=== PATIENT | female | born 1960 | race Hispanic/Latino ===

== ENCOUNTER 2017-11-08 09:42 | Outpatient (CLI) | payer BC ==
--- NOTE | 2017-11-08 13:02 | ULT ---
NECK SOFT TISSUE SONOGRAM: History: Lump left neck. FINDINGS: Lymph node along the left jugular chain is 1.1 cm in length. A 1.8 cm lymph node is also apparent alistair ng the left internal jugular chain. A 1.0 cm left submandibular lymph node is visualized. IMPRESSION: Reactive appearing lymph nodes along the left side of the neck. No dominant aggressive mass is appare nt. POS: [facility]
== END 2017-11-08 09:43 | disposition home or self-care (01) ==
LOC: ULT 09:42
PROVIDERS: ATTEND Family Medicine
DX: R59.1 Generalized enlarged lymph nodes (principal)
CPT/HCPCS: 76536

== ENCOUNTER 2017-12-01 10:39 | Outpatient (CLI) | payer BC ==
[2017-12-01] MEDS ORDERED: Iopamidol 370 76% 100 ML VIAL ONE (16:37)
== END 2017-12-01 10:40 | disposition home or self-care (01) ==
LOC: BICCT 10:39
PROVIDERS: ATTEND Otolaryngology Plastic Surgery within the Head & Neck
DX: K11.20 Sialoadenitis, unspecified (principal); M26.9 Dentofacial anomaly, unspecified
CPT/HCPCS: 70491

== ENCOUNTER 2018-03-05 12:52 | Outpatient (CLI) | payer BC ==
--- NOTE | 2018-03-07 12:59 | MMO ---
BILATERAL SCREENING MAMMOGRAMS: INDICATIONS: Annual exam. COMPARISON: 07/30/2016 FINDINGS: This interpretation of the examination is assisted with computer aided detection. There are scattered fibroglandular elements bilaterally. Again seen are right axillary lymph nodes. No new suspicious mass, cluster of microcalcifications, or area of architectural distortion is eviden t. IMPRESSION: BI-RADS Category 2: Benign. Recommend routine annual mammographic screening. POS: [facility]
== END 2018-03-05 12:53 | disposition home or self-care (01) ==
LOC: SCSMAMMO 12:52
PROVIDERS: ATTEND Family Medicine
DX: Z12.31 Encounter for screening mammogram for malignant neoplasm of breast (principal)
CPT/HCPCS: 77067